=== PATIENT | female | born 1990 | race Two or more races ===

== ENCOUNTER 2025-03-19 21:31 | Emergency (ER) | payer MEDICAID, SELFPAY ==
[2025-03-19 21:33] VITALS: BMI 36.8
[2025-03-19 21:45] VITALS: BP 121/84; PULSE 84; RESP 20; TEMP 36.9; O2SAT 100
--- NOTE | 2025-03-19 22:02 | EDNOTE_ITS ---
ED Skin Abcess FB-RME/HPI General Chief complaint: Skin/Abscess/Foreign Body Stated complaint: GENERALIZED RASH AND HIVES, POSSIBLE SHINGLES Time Seen by Provider: 03/19/25 21:34 Arrival date/time: 03/19/25 21:31 This is a case of 34-year-old female with no medical history came in in the emergency room initially with generalized urticarial rashes to the with some itching patient has no shortness of breath no facial or throat swelling no drooling of saliva patient also stated that she was diagnosed to have shingles last Wednesday and noted to have vesicular rash on the right lateral rib and was given topical medication now with pain Limitations: no limitations Related Data Previous Rx's ?Medication ?Instructions ?Recorded ibuprofen 800 mg tablet 800 mg PO QID PRN pain #20 t abs 11/17/17 cetirizine 10 mg tablet (Zyrtec) 10 mg PO QDAY #30 tab s 09/18/20 meclizine 25 mg tablet 25 mg PO TID PRN dizziness # 30 tabs 09/18/20 sodium chloride 0.65 % nasal spray 2 spray intranasal QID #60 mL 09/18/20 aerosol (Saline Nasal Mist) prednisone 10 mg tablet 30 mg (3 x 10 mg) PO BID #18 tabs 11/10/23 diphenhydramine HCl 25 mg tablet 25 mg PO TID PRN aicha rgic reaction 03/19/25 #20 tabs hydrocodone 5 mg-acetaminophen 325 1 tab PO Q6H PRN pa in #12 tabs 03/19/25 mg tablet prednisone 20 mg tablet See Taper PO QDAY 5 days #5 tabs 03/19/25 valacyclovir 1 gram tablet 1,000 mg PO BID #20 tabs Allergies Allergy/AdvReac Type Severity Reaction Status Date / Time ibuprofen Allergy Verified 03/19/25 21:33 meloxicam Allergy Verified 03/19/25 21:33 Review of Systems Review of Systems Systems Reviewed: All systems reviewed, normal except as documented Constitutional Constitutional: Reports system reviewed and no additional complaints, except as documented and Reports as per HPI Cardiovascular Cardiovascular: Reports system reviewed and no additional complaints, except as documented and Reports as per HPI Respiratory Respiratory: Reports system reviewed and no additional complaints, except as documented and Reports as per HPI Gastrointestinal Gastrointestinal: Reports system reviewed and no additional complaints, except as documented and Reports as per HPI Musculoskeletal Musculoskeletal: Reports system reviewed and no additional complaints, except as documented and Reports as per HPI Neurologic Neurologic: Reports system reviewed and no additional complaints, except as documented and Reports as per HPI Past Medical History Past Medical History CARDIAC: Negative Congestive Heart Failure RESPIRATORY: Negative Chronic Obstructive Pulmonary Disease (COPD) GENITOURINARY: Negative Renal Disease ENDOCRINE: Negative Diabetes Mellitus Type 1 or Diabetes Mellitus Type 2 Social History SMOKING STATUS: Never smoker ED Exam General Limitations: Present no limitations General appearance: Present alert, in no apparent distress and other Head Head exam: Present atraumatic Eye Eye exam: Present normal appearance, PERRL and EOMI ENT ENT exam: Present normal exam, normal oropharynx, mucous membranes moist and other Neck Neck exam: Present normal inspection, full ROM and trachea midline; Absent tenderness, meningismus, lymphadenopathy or thyromegaly Chest Chest inspection: Present normal inspection and symmetric chest wall rise; Absent tenderness Respiratory Respiratory exam: Present normal lung sounds bilaterally; Absent respiratory distress, wheezes, stridor, accessory muscle use or prolonged expiratory phase Cardiovascular Cardiovascular exam: Present regular rate, normal rhythm and normal heart sounds; Absent bradycardia, tachycardia, irregular rhythm, systolic murmur or diastolic murmur Abdominal Exam Abdominal exam: Present soft and normal bowel sounds; Absent distention, tenderness, guarding, rebound, rigidity, diminished bowel sounds, hyperactive bowel sounds, hypoactive bowel sounds or organomegaly Extremities Exam Extremities exam: Present normal inspection and full ROM Back Exam Back exam: Present normal inspection and full ROM Neurological Exam Neurological exam: Present alert, oriented X3, CN II-XII intact, normal gait and reflexes normal; Absent motor sensory deficit Psychiatric Psychiatric exam: Present normal affect and normal mood Skin Skin exam: Present warm, dry, intact, normal color and other (Noted urticarial rashes on both upper EXTR extremities both lower extremities chest abdomen and back suggestive of allergic urticaria patient was also having vesicular rash on the right lateral ribs suggestive of shingles no abscess no cellulitis) Course Quality Measures none Orders Category Date Time Status Dexamethasone Inj [Decadron Inj] Med 03/19/25 21:50 Discontinued 10 mg IM X1 ONE DiphenhydrAMINE INJ [Benadryl Inj] Med 03/19/25 21:50 Discontinued 25 mg IM X1 ONE Famotidine [Pepcid] Med 03/19/25 21:50 Discontinued 40 mg PO X1 ONE Vital Signs Vital signs: Vital Signs Temperature 98.4 F 03/19/25 21:45 Pulse Rate 84 03/19/25 21:45 Respiratory Rate 20 03/19/25 21:45 Blood Pressure 121/84 03/19/25 21:45 Pulse Oximetry (%) 100 03/19/25 21:45 Oxygen Delivery Method Room Air 03/19/25 21:45 Oxygen saturation 100% on room air Skin / Abscess / Foreign Body MDM Narrative MDM Narrative:: This is a case of 34-year-old female with no medical history came in in the emergency room initially with generalized urticarial rashes to the with some itching patient has no shortness of breath no facial or throat swelling no drooling of saliva patient also stated that she was diagnosed to have shingles last Wednesday and noted to have vesicular rash on the right lateral rib and was given topical medication now with pain physical examination patient is awake alert oriented not in distress nontoxic looking well-hydrated well-nourished lungs sound is clear no crackles no rales no wheezing no retraction no facial swelling no throat swelling no drooling of saliva patient have noted generalized urticarial rashes on the both upper extremities chest abdomen back and both lower extremities suggestive of allergic urticaria patient was given Benadryl Pepcid and dexamethasone patient was also concerned with the vesicular rashes on the right lateral aspect of the rib now with pain no redness no swelling no abscess no cellulitis at this point patient also noted to have shingles patient was advised to start taking valacyclovir patient was also discharged with prednisone and Benadryl and [place] for pain patient will follow-up with PCP for reevaluation and for any worsening symptoms or any emergent concern return precaution in the ER was advised Patient was discharged with comfortable condition walking with stable gait. Patient verbalized no further complains explained diagnosis and answered patient question. Patient is comfortable with the proposed management plan including the need to follow up with his/her primary care physician and any specialist if applicable Discussed patient for any urgent condition or worsening sx, He/She needed to go to emergency room immediately or call 911. Patient acknowledge the responsibility to follow up as instructed and to monitor her/his symptoms. For any persistence of the symptoms for more than 3-5 days return precaution advised. Discussed the result of the test and was given printed discharge instruction Patient data External records reviewed:: [facility] previous records Clinical information provided by:: patient Social determinants that could affect healthcare access:: none Patient has the following chronic illnesses:: None How is presenting disease/condition affected by chronic disease/condition?: no chronic disease Evaluation data The following diagnostics were reviewed and interpreted by me:: other (specify) (None) Lab and/or radiology exams considered but not ordered:: None Interpretation Summary: None Medications / Prescriptions Medications or Prescriptions considered but not ordered:: Given Medication administrations:: Medication Administration History Discontinued Medications Dexamethasone Sodium Phosphate (Dexamethasone Sod Phos Inj 10 Mg/Ml Vial) 10 mg IM X1 ONE Stop: 03/19/25 21:51 Diphenhydramine HCl (Diphenhydramine Inj 50 Mg/Ml Vial) 25 mg IM X1 ONE Stop: 03/19/25 21:51 Famotidine (Famotidine 20 Mg Tablet) 40 mg PO X1 ONE Stop: 03/19/25 21:51 Given Consultations Consultation(s) initiated? (list below): No Diagnosis Skin/Abscess Differential Diagnosis: abscess of skin or subcutaneous tissue, urticaria, herpes zoster, allergic reaction to drug and cellulitis Most likely diagnosis given after review of the tests above:: Allergic urticaria shingles Admission Indicated Admission indicated?: not indicated Explain why admission is indicated or not indicated:: Not indicate Admission Request Was there a request for admission?: No Admission Attestation Admission request attestation: Not indicated Disposition Plan Disposition Plan: Discharge Discharge Attestation Discharge Attestation: The patient and all family members were given an opportunity to ask questions and understood the discharge instructions. Discharge instructions specifically effects, indications for sooner follow up or return to the emergency department, and the expected course of current diagnosis. Patient condition: Stable Discharge Plan Plan Patient Disposition: HOME (Self Care) Patient condition on transfer: Stable Prescriptions/Referrals Prescriptions/Med Rec: New valacyclovir 1 gram tablet 1,000 mg PO BID Qty: 20 0RF hydrocodone-acetaminophen 5-325 mg tablet 1 tab PO Q6H MDD max 4 tabs per day PRN (Reason: pain) Qty: 12 0RF prednisone 20 mg tablet See Taper PO QDAY 5 Days Qty: 5 0RF Taper: Prednisone Taper 20 mg DAILY for 2 Days and 0 Hour 10 mg DAILY for 2 Days and 0 Hour 5 mg DAILY for 7 Days and 0 Hour diphenhydramine HCl 25 mg tablet 25 mg PO TID PRN (Reason: allergic reaction) Qty: 20 0RF No Action ibuprofen 800 mg tablet 800 mg PO QID PRN (Reason: pain) Qty: 20 0RF meclizine 25 mg tablet 25 mg PO TID PRN (Reason: dizziness) Qty: 30 0RF cetirizine [Zyrtec] 10 mg tablet 10 mg PO QDAY Qty: 30 0RF Saline Nasal Mist 0.65 % aerosol,spray 2 spray intranasal QID Qty: 60 0RF prednisone 10 mg tablet 30 mg PO BID Qty: 18 0RF Rx Instructions: administer with food or milk Problem List Clinical Impression: Allergic urticaria, Shingles Patient/Caregiver Discharge Instructions Education Materials: Shingles (Herpes Zoster), ED Hives (Adult), ED Shingles (Herpes Zoster) Additional Instructions: Follow-up with your primary care physician in 2 days for reevaluation and to be referred to contracting support specialist for allergy testing worsening symptoms or any emergent concern call 911 or go to the nearest emergency room take your medication as directed increase water intake keep hydrated good handwashing is advised Print Language: Amharic Stand Alone Forms: Adeline Award Info., Patient Portal Info Letter PA/[employer] Supervising Physician PA/[employer] Supervising Physician: Dr. Rivera
[2025-03-19] MEDS: DEXAMETHASONE SOD PHOS INJ 10 MG/ML VIAL IM (22:03)
[2025-03-19] MEDS: FAMOTIDINE 20 MG TABLET 40 MG PO (22:03)
== END 2025-03-20 00:17 | disposition home or self-care (01) ==
LOC: SERX 22:07
PROVIDERS: Emergency Provider Emergency Medicine; PCP Internal Medicine
DX: L50.0 Allergic urticaria (principal); B02.9 Zoster without complications
CPT/HCPCS: 96372; 99282; J1100; J1200; A9270